=== PATIENT | female | born 1985 | race American Indian/Alaskan Native ===

== ENCOUNTER 2017-10-08 17:47 | Emergency (ER) | payer MEDICAID ==
[2017-10-08 18:20] VITALS: BMI 34.9
[2017-10-08 18:22] VITALS: RESP 18; O2SAT 99
[2017-10-08] MEDS ORDERED: Sodium Chloride 0.9% 1,000 ML IV ONE (19:08)
[2017-10-08] MEDS ORDERED: Sodium Chloride 0.9% 1,000 ML ONE (19:13)
[2017-10-08 19:25] LABS: BASO # 0.1 K/uL (0.0-0.2); BASO % 0.9 % (0.0-2.0); EOS # 0.2 K/uL (0.0-0.7); EOS % 2.6 % (0.0-4.0); HEMOGLOBIN 11.2 g/dL (11.0-16.0); LYMPH # 2.7 K/uL (1.0-4.3); LYMPH % 36.8 % (20.0-40.0); MEAN CELL VOLUME 77.1 fL (81.0-99.0); MEAN CORPUSCULAR HEMOGLOBIN 24.7 pg (27.0-31.0); MEAN CORPUSCULAR HGB CONC 32.1 g/dL (33.0-37.0); MEAN PLATELET VOLUME 8.2 fL (7.2-11.7); MONO # 0.6 K/uL (0.0-0.8); MONO % 8.5 % (0.0-10.0); NEUT # 3.7 K/uL (1.8-7.0); NEUT % 51.2 % (50.0-75.0); RBC 4.54 Mil/uL (3.80-5.20); RED CELL DISTRIBUTION WIDTH 15.1 % (11.5-14.5); WHITE BLOOD COUNT 7.3 K/uL (4.8-10.8)
--- NOTE | 2017-10-08 19:30 | C.PDOC ---
History Of Present Illness 32 year old female presents to the ED complaining of vaginal bleeding that began today. LMP was 07/27/17. Patient is currently . States she noticed a small amount of bleeding this morning, and noticed more bleeding this evening. Denies any pain or cramps. Time Seen by Provider: 10/08/17 19:01 Chief Complaint (Nursing): Female Genitourinary History Per: Patient History/Exam Limitations: no limitations Onset/Duration Of Symptoms: Hrs Current Symptoms Are (Timing): Still Present Past Medical History Reviewed: Historical Data, Nursing Documentation, Vital Signs Vital Signs: Last Vital Signs Temp 98.7 F 10/08/17 21:45 Pulse 66 10/08/17 21:45 Resp 18 10/08/17 21:45 BP 116/71 10/08/17 21:45 Pulse Ox 99 10/08/17 21:47 - Medical History PMH: No Chronic Diseases Surgical History: Family History: States: No Known Family Hx - Social History Hx Alcohol Use: No Hx Substance Use: No - Immunization History Hx Tetanus Toxoid Vaccination: No Hx Influenza Vaccination: No Hx Pneumococcal Vaccination: No Review Of Systems Except As Marked, All Systems Reviewed And Found Negative. Gastrointestinal: Negative for: Nausea, Vomiting, Abdominal Pain Genitourinary: Positive for: Vaginal Bleeding. Negative for: Dysuria, Vaginal Discharge Physical Exam - Physical Exam Appears: Non-toxic, No Acute Distress Skin: Normal Color, Warm, Dry Head: Atraumatic, Normacephalic Eye(s): bilateral: Normal Inspection, PERRL, EOMI Nose: Normal Oral Mucosa: Moist Neck: Normal ROM, Supple Chest: Symmetrical Cardiovascular: Rhythm Regular, No Murmur Respiratory: Normal Breath Sounds, No Rales, No Rhonchi, No Wheezing Gastrointestinal/Abdominal: Soft, No Tenderness, No Guarding Pelvic: Normal External Exam (with cervix closed), Vaginal Bleeding (minimal), No Cervical Motion Tenderness Extremity: Bilateral: Atraumatic, Normal Color And Temperature, Normal ROM Neurological/Psych: Oriented x3, Normal Speech ED Course And Treatment - Laboratory Results Result Diagrams: 10/08/17 19:22 10/08/17 19:22 O2 Sat by Pulse Oximetry: 99 (RA) Pulse Ox Interpretation: Normal - CT Scan/US /OB US Other Rad Studies (CT/US): Read By Radiologist, Radiology Report Reviewed CT/US Interpretation: FINDINGS: Gestation: There is an intrauterine gestational sac with thick berrios. . The sac measures 1.5 cm. 5 week 6 day gestational age. A pole is seen the CRL 5 mm 6 weeks 1 day RAUDEL 2018. Clinical gestational age 10 weeks 3 days RAUDEL 05/03/2018. No heart activity is documented. This finding may relate to early gestational age. Placenta/amniotic fluid: Cannot be adequately evaluated due to the early gestational age. Uterus/cervix: Postoperative changes are seen in the cervix a small volume of fluid is seen within the. cervical canal. The cervix measures 3.7 cm No myometrial mass. Ovaries: Unremarkable. No mass. LEFT 4 cm x 2.2 cm x 2.9 cm. RIGHT 3.9 cm x 2.3 cm x 3.5 cm. A small cyst is seen 1.2 cm x 1.1 cm x 1.1 cm. Free fluid: Small free fluid collection is seen in the cul-de-sac. IMPRESSION: 1. Single living intrauterine gestation. 2. Ultrasound age discordant with clinical age. 3. heart activity is not documented possibly due to early age. 4. Postsurgical changes cervix. 5. Otherwise negative examination of the uterus. 6. Negative examination of the LEFT ovary. 7. Follicular cyst RIGHT ovary. 8. Small fluid collection cervical canal. Thank you for allowing us to participate in the care of your patient. Dictated and Authenticated by: Jeffrey Zuniga MD. 10/08/2017 9:40 PM Eastern Time ([place] & [place]) Medical Decision Making Medical Decision Making: Time: 19:07 Initial Plan: --Blood type and screen --Beta HCG quant --CMP --CBC --PTT --Prothrombin time --IV fluids --Pelvic US Labs reviewed, Beta quant is 13,721.00 Informed patient of US results and provided copy of report. Disposition Counseled Patient/Family Regarding: Diagnosis - Disposition Referrals: [facility] [Outside] Disposition: HOME/ ROUTINE Disposition Time: 21:48 Condition: STABLE Instructions: Threatened Miscarriage, Bleeding With (DC) Forms: [employer] (Ukrainian) - POA Present On Arrival: None - Clinical Impression Clinical Impression: Threatened in early - Scribe Statement The provider has reviewed the documentation as recorded by the Scribe (Zabrina Draper) Provider Attestation: All medical record entries made by the Scribe were at my direction and personally dictated by me. I have reviewed the chart and agree that the record accurately reflects my personal performance of the history, physical exam, medical decision making, and the department course for this patient. I have also personally directed, reviewed, and agree with the discharge instructions and disposition.
[2017-10-08 19:35] LABS: INR 1.2; PROTHROMBIN TIME 13.4 SECONDS (9.7-12.2)
[2017-10-08 19:47] LABS: ALB/GLOB RATIO 1.5 (1.0-2.1); ALBUMIN 4.3 g/dL (3.5-5.0); ALT/SGPT 28 U/L (9-52); AST/SGOT 23 U/L (14-36); BLOOD UREA NITROGEN 12 mg/dL (7-17); CALCIUM 9.3 mg/dl (8.6-10.4); GFR AFRICAN-AMERICAN > 60; GFR NON-AFRICAN AMERICAN > 60
[2017-10-08 21:47] VITALS: BP 116/71; PULSE 66; TEMP 98.7
--- NOTE | 2017-10-09 12:00 | US ---
PROCEDURE: OB Pelvic Ultrasound HISTORY: vaginal bleed COMPARISON: None available. FINDINGS: UTERUS: Intrauterine gestational sac identified. C RL measures 5 mm equivalent to 6 weeks 1 day. Mean gestational sac diameter is 15 mm equivalent to 5 weeks 6 days. age (Ultrasound estimated): 6 weeks 0 days Date of delivery (Ultrasound estimated) : 06/03/2018 No detectable cardiac activity. Yolk sac not visualized. Jael-gestational hemorrhage: None. Uterus measures 10.4 x 6.6 x 7.3 cm. No mass CERVIX: Cervix closed. Trace endocervical fluid noted. Cervix measures 3.7 cm in length. Cervical cerclage noted. RIGHT OVARY: Measures 3.9 x 2.3 x 3.5 cm. No mass. Normal flow. LEFT OVARY: Measures 4.0 x 2.3 x 2.9 cm. No mass. Normal flow. FREE FLUID: Trace fluid in cul-de-sac. OTHER FINDINGS: None. IMPRESSION: Intrauterine gestation identified without detectable cardiac activity. With a crown-rump length of 5 mm, this may represent an early gestation rather than demise and followup is advised with serial beta HCG and transvaginal ultrasound examination. Preliminary interpretation of this examination was reported by [facility] at 9:40 p.m. on 10/08/2017. There is concurrence of this report with the preliminary interpretation.
== END 2017-10-08 22:01 | disposition home or self-care (01) ==
LOC: C.ER 17:47
DX: O20.0 Threatened abortion (principal); Z3A.10 10 weeks gestation of pregnancy
CPT/HCPCS: 76805; 76817; 80053; 84702; 85025; 85610; 85730; 86850; 86900; 99284; J7030

== ENCOUNTER 2017-10-12 19:13 | Inpatient (IN) | payer MEDICAID ==
[2017-10-12 19:13] VITALS: BMI 34.9
[2017-10-12] MEDS ORDERED: Sodium Chloride 0.9% 2,000 ML IV ONE ×2 (20:03→23:27)
--- NOTE | 2017-10-12 20:03 | C.PDOC ---
History Of Present Illness 32 y/o female presents to the ED with complaint of 6 days of vaginal bleeding. Associated with suprapubic cramping. Patient states she was 10-12 weeks , and was recently seen at [facility] [place]. [place] [facility], patient had blood working demonstrating hemoglobin of 11 and Pelvic US that showed a complete miscarriage. Patient now complains she is still having bleeding, and is using 2-3 pads per hour although they are not soaking completely through. Otherwise denies any dizziness, lightheadedness, SOB, or other complaints. Time Seen by Provider: 10/12/17 20:02 Chief Complaint (Nursing): Abdominal Pain History Per: Patient History/Exam Limitations: no limitations Onset/Duration Of Symptoms: Days Current Symptoms Are (Timing): Still Present Severity: Mild Pain Scale Rating Of: 4 Location Of Pain/Discomfort: Suprapubic Radiation Of Pain To:: None Quality Of Discomfort: Cramping Associated Symptoms: Other (vaginal bleeding) Exacerbating Factors: None Alleviating Factors: None Past Medical History Reviewed: Historical Data, Nursing Documentation, Vital Signs Vital Signs: Last Vital Signs Temp 98.4 F 10/12/17 23:25 Pulse 100 H 10/12/17 23:25 Resp 18 10/12/17 22:13 BP 87/51 L 10/12/17 23:25 Pulse Ox 98 10/12/17 22:13 - Medical History PMH: Denies: Chronic Kidney Disease Surgical History: Family History: States: No Known Family Hx - Social History Hx Tobacco Use: No Hx Alcohol Use: No Hx Substance Use: No - Immunization History Hx Tetanus Toxoid Vaccination: No Hx Influenza Vaccination: No Hx Pneumococcal Vaccination: No Review Of Systems Constitutional: Negative for: Fever, Chills Cardiovascular: Negative for: Light Headedness Respiratory: Negative for: Shortness of Breath Gastrointestinal: Positive for: Abdominal Pain Genitourinary: Positive for: Vaginal Bleeding Neurological: Negative for: Dizziness Physical Exam - Physical Exam Appears: No Acute Distress Skin: Warm, Dry Head: Normacephalic Eye(s): bilateral: Normal Inspection Oral Mucosa: Moist Neck: Trachea Midline, Supple Chest: Symmetrical Cardiovascular: Rhythm Regular Respiratory: No Rales, No Rhonchi, No Wheezing Gastrointestinal/Abdominal: Soft, Tenderness (Suprapubic discomfort on palpation ), No Guarding, No Rebound Extremity: Bilateral: Atraumatic, Normal Color And Temperature, Normal ROM Pulses: Left Dorsalis Pedis: Normal, Right Dorsalis Pedis: Normal Neurological/Psych: Oriented x3 Gait: Steady ED Course And Treatment - Laboratory Results Result Diagrams: 10/12/17 20:15 10/12/17 20:15 O2 Sat by Pulse Oximetry: 100 (RA) Pulse Ox Interpretation: Normal Progress Note: Blood work and urine ordered and reviewed. Pelvic US ordered. Administered IVF hydration. 20:31 Patient evaluated by her OBGYN in the ED. Awaiting pelvic ultrasound. 11:30 pt dropped her bp 90/50. HR 77. Less vaginal bleeding. Ivf running via 2 lines. Critical Care Time - Critical Care Note Total Time (in mins): 30 Documented critical care: time excludes all time spent performing seperately billable procedures. Disposition Discussed With DrMariaelena: Jeanine Meyer Comment: accepted the pt on her service and took over the care at 11:42 PM Doctor Will See Patient In The: Hospital Counseled Patient/Family Regarding: Studies Performed, Diagnosis - Disposition Disposition: HOSPITALIZED Disposition Time: 20:03 Condition: GUARDED Forms: [employer] (Chinese) - Clinical Impression Clinical Impression: Vaginal bleeding, Retained products of conception - Scribe Statement The provider has reviewed the documentation as recorded by the Scribe (Zabrina Draper) Provider Attestation: All medical record entries made by the Scribe were at my direction and personally dictated by me. I have reviewed the chart and agree that the record accurately reflects my personal performance of the history, physical exam, medical decision making, and the department course for this patient. I have also personally directed, reviewed, and agree with the discharge instructions and disposition.
[2017-10-12 20:24] LABS: BASO % 0.3 % (0.0-2.0); EOS # 0.1 K/uL (0.0-0.7); LYMPH # 1.6 K/uL (1.0-4.3); LYMPH % 23.4 % (20.0-40.0); MEAN CELL VOLUME 77.5 fL (81.0-99.0); MEAN CORPUSCULAR HEMOGLOBIN 25.2 pg (27.0-31.0); MEAN CORPUSCULAR HGB CONC 32.5 g/dL (33.0-37.0); MEAN PLATELET VOLUME 8.6 fL (7.2-11.7); MONO # 0.4 K/uL (0.0-0.8); MONO % 6.3 % (0.0-10.0); NEUT # 4.7 K/uL (1.8-7.0); NRBC % 0.1 % (0.0-2.0); RBC 3.13 Mil/uL (3.80-5.20); RED CELL DISTRIBUTION WIDTH 15.5 % (11.5-14.5)
[2017-10-12 20:41] LABS: HEMOGLOBIN 7.9 g/dL (11.0-16.0)
[2017-10-12 20:42] LABS: ALB/GLOB RATIO 1.4 (1.0-2.1); ALBUMIN 3.3 g/dL (3.5-5.0); ALT/SGPT 27 U/L (9-52); AST/SGOT 17 U/L (14-36); BLOOD UREA NITROGEN 12 mg/dL (7-17); CALCIUM 8.7 mg/dl (8.6-10.4); GFR AFRICAN-AMERICAN > 60; GFR NON-AFRICAN AMERICAN > 60
[2017-10-12 20:44] LABS: INR 1.2; PROTHROMBIN TIME 12.9 SECONDS (9.7-12.2)
[2017-10-12 20:56] LABS: SQUAMOUS EPITHIAL < 1 /hpf (0-5); URINE BACTERIA RARE (<OCC); URINE BILIRUBIN NEGATIVE (NEGATIVE); URINE BLOOD 3+ (NEGATIVE); URINE CLARITY Hazy (Clear); URINE COLOR Yellow (YELLOW); URINE GLUCOSE (UA) NORMAL (Normal); URINE LEUKOCYTE ESTERASE TRACE Leu/uL (Negative); URINE PROTEIN 1+ mg/dL (NEGATIVE); URINE UROBILINOGEN NORMAL mg/dL (0.2-1.0)
--- NOTE | 2017-10-12 23:05 | US ---
EXAM: US , Transvaginal EXAM DATE/TIME: Exam ordered 10/12/2017 8:17 PM CLINICAL HISTORY: 32 years old, female; Signs and symptoms; Lmp or gestational age (in weeks): 07/27/2017; Other: Possible retained products of conception; TECHNIQUE: Real-time transvaginal obstetrical ultrasound of the maternal pelvis and a first trimester with image documentation. Transvaginal imaging was used for better evaluation of the fetus and adnexa. COMPARISON: US - PREG 1ST TRIMESTER/OB TV 2017-10-08 20:21 FINDINGS: Gestation: A gestational sac within the lower uterine segment measures 2.35 x 0.99 x 0.9 cm for a mean sac diameter 1.41 cm for a menstrual age of 5 weeks and 4 days. A pole with a crown-rump length measurement of 0.36 cm and a menstrual age of 6 weeks and 0 days is noted. Nocardiac activity noted in the pole. Placenta/amniotic fluid: Cannot be adequately evaluated due to the early gestational age. Uterus/cervix: A fluid collection is noted in the lower uterine segment and endocervical canal proximally. The uterus measures 11.1 x 5.6 x 5.7 cm. Endometrial stripe measures 1.9 cm. Blood flow is noted within the endometrium on color Doppler examination. A calcification is noted in the posterior lower uterine segment. The cervix measures 1.65 cm in length. Ovaries: The right ovary measures 4 x 2 x 3.4 cm. Subcentimeter follicles are present. Blood was present in the ovary on color Doppler examination. The left ovary is not seen as a separate structure. No mass. Free fluid: No free fluid. IMPRESSION: 1. Failed intrauterine . pole is smaller than on the previous examination. has moved to the lower uterine segment since the previous examination 2. There is effacement of the cervix
[2017-10-12] MEDS ORDERED: Sodium Chloride 0.9% 1,000 ML ONE (23:30)
[2017-10-13 07:44] LABS: HEMOGLOBIN 6.7 g/dL (11.0-16.0); MEAN CELL VOLUME 77.5 fL (81.0-99.0); MEAN CORPUSCULAR HEMOGLOBIN 25.1 pg (27.0-31.0); MEAN CORPUSCULAR HGB CONC 32.5 g/dL (33.0-37.0); MEAN PLATELET VOLUME 7.9 fL (7.2-11.7); RBC 2.68 Mil/uL (3.80-5.20); RED CELL DISTRIBUTION WIDTH 15.4 % (11.5-14.5); WHITE BLOOD COUNT 5.2 K/uL (4.8-10.8)
[2017-10-13] MEDS ORDERED: Lactated Ringer's 1,000 ML IV ONE ×2 (08:00→14:53)
--- NOTE | 2017-10-13 14:06 | CP.PCM.HP ---
History of Present Illness - History of Present Illness History of Present Illness: 32 y/o with incomplete abortin ~ 6-7 weeks reports had vaignal bleeidng last week, was evluated at [facility] er last thruday adn discharge. pt started ot having heavy bleeing over hte weekend and seen at [facility] [place] and discharged. Pt then called office yesterday reprots bleeding heavy passign some clots and feelign tired and adivsed to come to ER. Pt was evlauted in the er adn the bleeidgn had stopped . Pt was souncled on concervative vs surgical manamget. Pt was also advised on risk of infectin, bleeding, etc adn declined. pt rperots had crampign before coming improved iwth iburporon and reports just concnered abou tbleeding. 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 chlyamdix 2016, last pap 2016 PMH: dneis PSH: Failed cervical cerlaced, abodminal cerclage FHX: Mom, Dad: HTN MEDS: pnv NKDA SXH: Negaitve etoh/tobacc/durgs Present on Admission - Present on Admission Any Indicators Present on Admission: No Review of Systems - Review of Systems All systems: reviewed and no additional remarkable complaints except - Constitutional Constitutional: As Per HPI - Cardiovascular Cardiovascular: absent: As Per HPI, Acrocyanosis, Chest Pain, Chest Pain at Rest , Chest Pain with Activity, Claudication, Diaphoresis, Dyspnea, Dyspnea on Exertion, Edema, Irregular Heart Rhythm, Pain Radiating to Arm/Neck/Jaw, Leg Edema, Leg Ulcers, Lightheadedness, Orthopnea, Palpitations, Paroxysmal Nocturnal Dyspnea, Pedal Edema, Radiating Pain, Rapid Heart Rate, Slow Heart Rate, Syncope, Other - Respiratory Respiratory: absent: As Per HPI, Cough, Dyspnea, Hemoptysis, Dyspnea on Exertion , Wheezing, Snoring, Stridor, Pain on Inspiration, Chest Congestion, Excessive Mucous Production, Change in Mucous Color, Pain with Coughing, Other - Gastrointestinal Gastrointestinal: absent: As Per HPI, Abdominal Pain, Belching, Bloating, Change in Bowel Habits, Change in Stool Character, Coffee Ground Emesis, Constipation, Cramping, Diarrhea, Dyspepsia, Dysphagia, Early Satiety, Excessive Flatus, Fecal Incontinence, Heartburn, Hematemesis, Hematochezia, Loose Stools, Melena, Nausea, Odynophagia, Temesmus, Vomiting, Other - Reproductive: Female Reproductive:Female: As Per HPI. absent: Amenorrhea, Amenorrhea/ Control, Currently Menstual, Cycle <21 Days, Cycle >35 Days, Cycle Variable, Menses 1-7 Days, Menses >/= 8 Days, Menses Variable, Cycle > 4 Weeks Between, No Menses for 6 Months, Heavy Menses, Light Menses, Normal Menses, Spotting Between Cycles , S/P Hysterectomy, Menopausal, Post Menopausal, Premenarche, Abnormal Vaginal Bleeding, Dysmenorrhea, Dyspareunia, Genital Lesions, Genital Pruritis, Pelvic Pain, Prolapse Symptoms, Sexual Dysfunction, Vaginal Discharge, Vaginal Dryness , Vaginal Odor, Vaginal Pruritis, Other - Menstruation Menstruation: As Per HPI - Integumentary Integumentary: absent: As Per HPI, Acne, Alopecia, Bleeding Lesions, Change in Hair, Change in Nails, Change in Pigmentation, Changing Lesions, Dry Skin, Erythema, Furuncle, Hirsutism, Lesions, New Lesions, Non-Healing Lesions, Photosensitivity, Pruritus, Rash, Skin Pain, Skin Ulcer, Sores, Striae, Swelling , Unusual Bruising, Wounds, Jaundice, Other - Neurological Neurological: absent: As Per HPI, Abnormal Gait, Abnormal Hearing, Abnormal Movements, Abnormal Speech, Behavioral Changes, Burning Sensations, Confusion, Convulsions, Disequilibrium, Dizziness, Numbness, Focal Weakness, Frequent Falls , Headaches, Lack of Coordination, Loss of Vision, Memory Loss, Paresthesias, Radicular Pain, Restless Legs, Sensory Deficit, Syncope, Tingling, Tremor, Vertigo, Weakness, Other Visual Disturbances, Other - Psychiatric Psychiatric: absent: As Per HPI, Abnormal Sleep Pattern, Anhedonia, Anxiety, Auditory Hallucinations, Behavioral Changes, Change in Appetite, Change in Libido, Confusion, Depression, Difficulty Concentrating, Hallucinations, Homicidal Ideation, Hopelessness, Irritability, Memory Loss, Mood Swings, Panic Attacks, Paranoia, Suicidal Ideation, Visual Hallucinations, Tactile Hallucinations, Other Past Patient History - Past Social History Smoking Status: Never Smoked - CARDIAC Hx Cardiac Disorders: No - PULMONARY Hx Respiratory Disorders: No - NEUROLOGICAL Hx Neurological Disorder: No - HEENT Hx HEENT Problems: No - RENAL Hx Chronic Kidney Disease: No - ENDOCRINE/METABOLIC Hx Endocrine Disorders: No - HEMATOLOGICAL/ONCOLOGICAL Hx Blood Disorders: No - INTEGUMENTARY Hx Dermatological Problems: No - MUSCULOSKELETAL/RHEUMATOLOGICAL Hx Musculoskeletal Disorders: No - GASTROINTESTINAL Hx Gastrointestinal Disorders: No - GENITOURINARY/GYNECOLOGICAL Hx Genitourinary Disorders: No - PSYCHIATRIC Hx Substance Use: No - SURGICAL HISTORY Hx Surgeries: Yes Hx Section: Yes Other/Comment: cervical cerclage - ANESTHESIA Hx Anesthesia Reactions: No Meds Allergies/Adverse Reactions: Allergies Allergy/AdvReac Type Severity Reaction Status Date / Time shellfish derived Allergy Verified 10/12/17 19:25 Physical Exam - Constitutional Appears: Well, Non-toxic, No Acute Distress - Head Exam Head Exam: ATRAUMATIC, NORMAL INSPECTION - Eye Exam Eye Exam: EOMI - ENT Exam ENT Exam: Mucous Membranes Moist - Neck Exam Neck exam: Positive for: Normal Inspection - Respiratory Exam Respiratory Exam: Clear to Auscultation Bilateral, NORMAL BREATHING PATTERN - Cardiovascular Exam Cardiovascular Exam: +S1, +S2 - GI/Abdominal Exam GI & Abdominal Exam: Normal Bowel Sounds, Soft Additional comments: non tender, no guarding, no reboudnt enender,e no rigidy - Exam Additional comments: External genialita; no gross abnormal Vagna: dark red bloodk no clots Cervix; FT, no gross bleeding tueurs; Non tender Anexa; non tender Anus/perienum: Grossly normal - Back Exam Back exam: NORMAL INSPECTION. absent: CVA tenderness (L), CVA tenderness (R), FULL ROM, muscle spasm, paraspinal tenderness, rash noted, tenderness, vertebral tenderness - Neurological Exam Neurological exam: Alert, Oriented x3, Reflexes Normal - Psychiatric Exam Psychiatric exam: Normal Affect, Normal Mood - Skin Skin Exam: Dry, Intact, Warm Additional comments: negative homans sign Results - Vital Signs Recent Vital Signs: Last Vital Signs Temp 97.8 F 10/13/17 13:30 Pulse 75 10/13/17 13:30 Resp 20 10/13/17 13:30 BP 105/61 10/13/17 13:30 Pulse Ox 97 10/13/17 13:30 - Labs Result Diagrams: 10/13/17 07:32 10/12/17 20:15 Labs: Laboratory Results - last 24 hr 10/12/17 10/12/17 10/12/17 20:15 20:15 20:15 WBC 7.0 RBC 3.13 L Hgb 7.9 L D Hct 24.3 L MCV 77.5 L MCH 25.2 L MCHC 32.5 L RDW 15.5 H Plt Count 229 MPV 8.6 Neut % (Auto) 68.0 Lymph % (Auto) 23.4 Union % (Auto) 6.3 Eos % (Auto) 2.0 Baso % (Auto) 0.3 Neut # (Auto) 4.7 Lymph # (Auto) 1.6 Union # (Auto) 0.4 Eos # (Auto) 0.1 Baso # (Auto) 0.0 PT 12.9 H INR 1.2 APTT 25 Sodium 137 Potassium 3.9 Chloride 105 Carbon Dioxide 24 Anion Gap 11 BUN 12 Creatinine 0.6 L Est GFR ( Amer) > 60 Est GFR (Non-Af Amer) > 60 Random Glucose 136 H Calcium 8.7 Total Bilirubin 0.2 AST 17 ALT 27 Alkaline Phosphatase 58 Total Protein 5.6 L Albumin 3.3 L D Globulin 2.3 Albumin/Globulin Ratio 1.4 Beta HCG, Quant 6509.60 Urine Color Urine Clarity Urine pH Ur Specific Milton Urine Protein Urine Glucose (UA) Urine Ketones Urine Blood Urine Nitrate Urine Bilirubin Urine Urobilinogen Ur Leukocyte Esterase Urine WBC (Auto) Urine RBC (Auto) Ur Squamous Epith Cells Urine Bacteria Blood Type Antibody Screen 10/12/17 10/12/17 10/13/17 20:15 20:48 07:32 WBC 5.2 RBC 2.68 L Hgb 6.7 L Hct 20.7 L MCV 77.5 L MCH 25.1 L MCHC 32.5 L RDW 15.4 H Plt Count 195 MPV 7.9 Neut % (Auto) Lymph % (Auto) Union % (Auto) Eos % (Auto) Baso % (Auto) Neut # (Auto) Lymph # (Auto) Union # (Auto) Eos # (Auto) Baso # (Auto) PT INR APTT Sodium Potassium Chloride Carbon Dioxide Anion Gap BUN Creatinine Est GFR ( Amer) Est GFR (Non-Af Amer) Random Glucose Calcium Total Bilirubin AST ALT Alkaline Phosphatase Total Protein Albumin Globulin Albumin/Globulin Ratio Beta HCG, Quant Urine Color Yellow Urine Clarity Hazy Urine pH 9.0 Ur Specific Milton 1.016 Urine Protein 1+ H Urine Glucose (UA) Normal Urine Ketones Negative Urine Blood 3+ H Urine Nitrate Negative Urine Bilirubin Negative Urine Urobilinogen Normal Ur Leukocyte Esterase Trace Urine WBC (Auto) 6 H Urine RBC (Auto) 688 H Ur Squamous Epith Cells < 1 Urine Bacteria Rare Blood Type B POSITIVE Antibody Screen Negative Assessment & Plan (1) Incomplete Assessment and Plan: 32 y/o with abodminal cerclage with incomplete abortoin 1. 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 r/b/ai of conserviative, medical vs surgical managmetn dw paietn 3. type and venu 4. Npo, ivf 5. Or/anesthiesa Status: Acute
[2017-10-13] MEDS ORDERED: Midazolam 2 MG/2 ML VIAL ONE (14:24)
[2017-10-13] MEDS ORDERED: Doxycycline 100 mg Inj ONE (14:25)
[2017-10-13] MEDS ORDERED: Oxytocin 10 Units/ml Inj ONE (14:26)
--- NOTE | 2017-10-13 14:50 | PCM.SURG1 ---
Surgeon's Initial Post Op Note - Surgeon's Notes Surgeon: ANTHONY THOMAS MD Steel Estimator: none Type of Anesthesia: General Endo Pre-Operative Diagnosis: Incompete 7 weeks, abdominal cerclage Operative Findings: cervix dilated 1cm, moderate amoutns of products of conception, curbed 7 suction currette, endoemtiral stripe 1cm Post-Operative Diagnosis: same as above Operation Performed: Suction dilation and currettage under ultrasound guidance Specimen/Specimens Removed: products of conception Estimated Blood Loss: EBL {In ML}: 50 Blood Products Given: N/A Drains Used: No Drains Post-Op Condition: Good Date of Surgery/Procedure: 10/13/17 Time of Surgery/Procedure: 14:30
[2017-10-13] MEDS ORDERED: Sodium Chloride 0.9% 1,000 ML IV ONE (14:53)
[2017-10-13 17:01] VITALS: O2SAT 100
[2017-10-13 20:26] LABS: BASO % 0.2 % (0.0-2.0); EOS # 0.2 K/uL (0.0-0.7); EOS % 2.1 % (0.0-4.0); HEMOGLOBIN 8.3 g/dL (11.0-16.0); LYMPH # 2.6 K/uL (1.0-4.3); MEAN CELL VOLUME 79.2 fL (81.0-99.0); MEAN CORPUSCULAR HEMOGLOBIN 26.2 pg (27.0-31.0); MEAN PLATELET VOLUME 8.3 fL (7.2-11.7); MONO # 0.5 K/uL (0.0-0.8); MONO % 6.7 % (0.0-10.0); NEUT # 4.6 K/uL (1.8-7.0); RBC 3.17 Mil/uL (3.80-5.20); RED CELL DISTRIBUTION WIDTH 15.6 % (11.5-14.5)
[2017-10-13 21:09] LABS: ALB/GLOB RATIO 1.3 (1.0-2.1); ALBUMIN 2.7 g/dL (3.5-5.0); ALT/SGPT 28 U/L (9-52); AST/SGOT 16 U/L (14-36); BLOOD UREA NITROGEN 6 mg/dL (7-17); CALCIUM 8.1 mg/dl (8.6-10.4); GFR AFRICAN-AMERICAN > 60; GFR NON-AFRICAN AMERICAN > 60
[2017-10-13] MEDS ORDERED: Potassium Chloride 20 mEq ER Tab PO ONE (22:15)
[2017-10-14 00:13] VITALS: TEMP 98.2
--- NOTE | 2017-10-14 03:01 | OP ---
PROCEDURE DATE: 10/13/2017 SURGEON: Jeanine Meyer MD FILLING MACHINE TENDER: None. TYPE OF ANESTHESIA: General endotracheal. PREOPERATIVE DIAGNOSIS: Incomplete at 7 weeks, . POSTOPERATIVE DIAGNOSIS: Incomplete at 7 weeks, . OPERATIVE FINDINGS: Cervix dilated 1 cm, moderate amount of products of conception, 7-mm suction curette . Endometrial stripe was 1 cm. OPERATION PERFORMED: Suction dilation and curettage under ultrasound guidance. SPECIMENS REMOVED: Products of conception. ESTIMATED BLOOD LOSS: 50 mL. BLOOD PRODUCTS: None. COMPLICATIONS: None. DESCRIPTION OF PROCEDURE: The patient was admitted the prior night, complaining of vaginal bleeding and was admitted. The bleeding had improved. The patient was counseled on conservative versus medical versus surgical management. The patient initially declined. The patient was counseled on risks of bleeding infection and blood transfusion. The patient was offered, however, declined. Again after this morning, the patient then started to feel symptomatic and accepted a blood transfusion and agreed for surgical intervention. Consent was obtained. The patient was taken to the operating room where she was given anesthesia. Once found to be adequate, she was positioned on the operating table in dorsal supine position with legs supported using stirrups. The patient was then prepped and draped in the usual sterile fashion. The patient was given preoperative prophylactic antibiotics, doxycycline. Bimanual exam was performed. A red-rubber catheter was then inserted into the urethra to drain the bladder. A Moreau retractor was placed in the anterior and posterior fornix of vagina. Cervix was adequately visualized. There were moderate amounts of blood noted, which were cleaned up. Polyp forceps was placed on the anterior lip of the cervix. The cervix was then sequentially dilated, and the 7-mm suction curette was then advanced with the fundus under ultrasound guidance. The suction curette was then activated and rotated 360 degrees until all products were removed. Air bubbles were seen within the suction curette. Following with gentle curettage at 360 degrees, suction curette was then advanced. One additional time, Pitocin was also given. All products had been removed. Postprocedure, endometrial strip was performed of 1 cm. All instruments were removed. There was good hemostasis noted. At the end of the procedure, all needle, sponge, and instrument counts were noted and correct x2. The patient tolerated the procedure well and was transferred to the recovery room in stable condition. Jeanine Meyer MD
[2017-10-14 08:14] LABS: BASO % 0.4 % (0.0-2.0); EOS # 0.3 K/uL (0.0-0.7); EOS % 4.7 % (0.0-4.0); HEMOGLOBIN 7.9 g/dL (11.0-16.0); LYMPH # 2.1 K/uL (1.0-4.3); LYMPH % 36.2 % (20.0-40.0); MEAN CELL VOLUME 78.4 fL (81.0-99.0); MEAN CORPUSCULAR HEMOGLOBIN 26.5 pg (27.0-31.0); MEAN CORPUSCULAR HGB CONC 33.8 g/dL (33.0-37.0); MEAN PLATELET VOLUME 8.5 fL (7.2-11.7); MONO # 0.4 K/uL (0.0-0.8); MONO % 7.3 % (0.0-10.0); NEUT % 51.4 % (50.0-75.0); RBC 2.98 Mil/uL (3.80-5.20); RED CELL DISTRIBUTION WIDTH 15.5 % (11.5-14.5); WHITE BLOOD COUNT 5.8 K/uL (4.8-10.8)
[2017-10-14 08:22] VITALS: BP 113/67; PULSE 72; RESP 18
[2017-10-14 13:17] LABS: BLOOD UREA NITROGEN 5 mg/dL (7-17); CALCIUM 8.9 mg/dl (8.6-10.4); GFR AFRICAN-AMERICAN > 60; GFR NON-AFRICAN AMERICAN > 60
[2017-10-14 14:06] LABS: ALB/GLOB RATIO 1.3 (1.0-2.1); ALBUMIN 3.2 g/dL (3.5-5.0); ALT/SGPT 29 U/L (9-52); AST/SGOT 32 U/L (14-36)
== END 2017-10-14 13:50 | disposition home or self-care (01) | DRG 381 ==
LOC: C.ER 19:13 → C.9E 23:25 → C.4M 23:50
PROVIDERS: ADMIT Obstetrics & Gynecology; ATTEND Obstetrics & Gynecology
PROC: 10D17ZZ Extraction of Products of Conception, Retained, Via Natural or Artificial Opening (ICD-10-PCS; principal; 2017-10-13 15:45)
DX: O03.4 Incomplete spontaneous abortion without complication (principal); Z3A.01 Less than 8 weeks gestation of pregnancy; Z98.891 History of uterine scar from previous surgery